=== PATIENT | female | born 1985 | race American Indian/Alaskan Native ===

== ENCOUNTER 2018-04-29 11:37 | Emergency (ER) | payer OTHER, MEDICAID ==
[2018-04-29 11:47] VITALS: BP 133/78
--- NOTE | 2018-04-29 12:24 | Emergency Department Report ---
ED Female HPI - General Chief complaint: Vaginal Bleeding Stated complaint: AND BLEDDING Time Seen by Provider: 04/29/18 12:21 Source: patient Mode of arrival: Ambulatory Limitations: No Limitations - History of Present Illness Initial comments: Unknown last normal menstrual period had a positive test at the [facility], no care, spotting times one day not soaking pads but did have one change of pads, she's been not been lightheaded or dizzy is here for evaluation of vaginal bleeding in , has had no care, no ultrasound does not know her blood type, and she is A0 Complaint: vaginal bleeding -: Gradual, hour(s) Severity scale (0 -10): 0 Quality: cramping Associated Symptoms: denies other symptoms. denies: nausea/vomiting, fever/ chills, headaches, loss of appetite, dysuria, hematuria, rash, seizure, shortness of breath, syncope, weakness - Related Data Allergies Allergy/AdvReac Type Severity Reaction Status Date / Time No Known Allergies Allergy Unverified 04/29/18 11:44 ED Review of Systems ROS: Stated complaint: AND BLEDDING Other details as noted in HPI Comment: All other systems reviewed and negative Constitutional: denies: diaphoresis, fever, malaise Eyes: denies: eye discharge, vision change ENT: denies: dental pain, hearing loss, epistaxis Respiratory: denies: shortness of breath, SOB with exertion, SOB at rest, stridor Cardiovascular: denies: chest pain, palpitations, dyspnea on exertion Gastrointestinal: denies: nausea, vomiting, diarrhea, constipation, hematemesis , melena, hematochezia Neurological: denies: headache, weakness, numbness, paresthesias ED Past Medical Hx - Past Medical History Previous Medical History?: No - Surgical History Past Surgical History?: No - Social History Smoking Status: Never Smoker Substance Use Type: None ED Physical Exam - General Limitations: No Limitations General appearance: alert, in no apparent distress - Head Head exam: Present: atraumatic, normocephalic - Eye Eye exam: Present: normal appearance, PERRL, EOMI - ENT ENT exam: Present: normal exam - Neck Neck exam: Present: normal inspection. Absent: tenderness, meningismus - Respiratory Respiratory exam: Present: normal lung sounds bilaterally. Absent: respiratory distress, wheezes, rales, rhonchi, stridor - Cardiovascular Cardiovascular Exam: Present: regular rate, normal rhythm - GI/Abdominal GI/Abdominal exam: Present: soft. Absent: distended, tenderness, guarding, rebound, rigid, mass, pulsatile mass - External exam: Present: normal external exam Speculum exam: Present: other (deferred at patient request) - Extremities Exam Extremities exam: Present: normal inspection, normal capillary refill ED Course Vital Signs 04/29/18 11:44 Temperature 98.6 F Pulse Rate 83 Respiratory 16 Rate Blood Pressure 133/78 O2 Sat by Pulse 100 Oximetry ED Medical Decision Making - Lab Data Result diagrams: 04/29/18 12:38 - Radiology Data Radiology results: report reviewed - Medical Decision Making Ultrasound shows IUP ,patient is a no acute abd at this time vital signs are stable normal H&H Rh+ stable for outpatient follow-up Critical care attestation.: If time is entered above; I have spent that time in minutes in the direct care of this critically ill patient, excluding procedure time. ED Disposition Clinical Impression: Threatened Disposition: DC-01 TO HOME OR SELFCARE Is pt being admited?: No Condition: Stable Instructions: Threatened Miscarriage (ED) Additional Instructions: Return immediately if new or alarming symptoms such as worse bleeding pain or other problems soaking a pad an hour for greater than 6 hours lightheadedness or other problems see the doctor listed Referrals: PRIMARY CARE, [Primary Care Provider] - 3-5 Days Time of Disposition: 15:50
[2018-04-29 12:50] LABS: Basophils % (Auto) 0.6 % (0.0-1.8); Eosinophils # (Auto) 0.3 K/mm3 (0.0-0.4); Eosinophils % (Auto) 3.6 % (0.0-4.3); Hematocrit 38.2 % (30.3-42.9); Hemoglobin 12.4 gm/dl (10.1-14.3); Lymphocytes # (Auto) 2.8 K/mm3 (1.2-5.4); Lymphocytes % (Auto) 39.3 % (13.4-35.0); Mean Corpuscular HGB Conc 32 % (30-34); Mean Corpuscular Hemoglobin 26 pg (28-32); Mean Corpuscular Volume 81 fl (79-97); Monocytes # (Auto) 0.4 K/mm3 (0.0-0.8); Monocytes % (Auto) 6.2 % (0.0-7.3); Platelet Count 258 K/mm3 (140-440); Red Blood Count 4.74 M/mm3 (3.65-5.03); Red Cell Distribution Width 14.8 % (13.2-15.2)
--- NOTE | 2018-04-29 15:22 | Ultrasound Report ---
FINAL REPORT EXAM: US OB < = 14 WEEKS FETUS HISTORY: 11 weeks , vaginal bleeding, cramping TECHNIQUE: Transabdominal and transvaginal OB ultrasound. PRIORS: None currently available. FINDINGS: Single intrauterine dates 11.5 weeks by crown rump length. ANABELLE equals November 13, 2018.. [place]-rump length measures 49.4 mm. heart rate: 162 BPM. Uterus: 11.2 x 7.3 x 8.8 cm. Gestational sac, yolk sac, and pole identified. Subchorionic bleed measures 7.4 x 1.0 x 5.8 cm. Cervix: Right ovary: 2.9 x 1.9 x 2.3 cm. 1.2 cm complex cystic lesion in the left ovary may represent an involuting corpus luteal cyst. Left Ovary: 3.2 x 1.8 x 3.1 cm. Within normal limits. Adnexal: Unremarkable. No free fluid. IMPRESSION: Single live intrauterine . Complex cystic lesion in the right ovary. Suspect involuting corpus luteal cyst. Subchorionic bleed. Juvencio level II non-urgent reporting initiated.
== END 2018-04-29 16:07 | disposition home or self-care (01) ==
LOC: ED 11:37
DX: O20.0 Threatened abortion (principal); Z3A.11 11 weeks gestation of pregnancy
CPT/HCPCS: 36415; 76801; 76817; 84702; 85025; 86850; 86900; 86901; 99284

== ENCOUNTER 2018-11-01 14:17 | Inpatient (IN) | payer OTHER, MEDICAID ==
[2018-11-01] MEDS ORDERED: XYLOCAINE 2% INFILTRATI ONE (19:20)
[2018-11-01] MEDS ORDERED: MINERAL OIL PO PRN (19:20)
[2018-11-01] MEDS ORDERED: BRETHINE IVP PRN (19:20)
[2018-11-01] MEDS ORDERED: STADOL IV PRN (19:20)
[2018-11-01] MEDS ORDERED: PHENERGAN PO PRN ×2 (19:20→21:42)
[2018-11-01] MEDS ORDERED: BRETHINE SUB-Q PRN (19:20)
--- NOTE | 2018-11-01 19:20 | History and Physical Report ---
History of Present Illness Date of examination: 11/01/18 History of present illness: Patient presented to labor and delivery with complaints of regular contractions. After walking patient had change in cervix from 4 cm to 8 cm. Patient admitted for active labor. Her course complicated by gestational diabetes diet- controlled. Menstrual History Regularity: regular Duration: 5 LMP: 02/06/2018 LMP reliability: definite LMP character: normal EDC Calculations LMP: 11/13/2018 EDC Confirmation: 11/13/2018 Past History : 2 Term Births: 1 Premature Births: 0 Living Children: 1 Para: 1 Mult. Births: 0 Prev : 0 Prev. attempt? 0 Aborta: 0 Elect. Ab: 0 Spont. Ab: 0 Ectopics: 0 # 1 Delivery date: 10/28/2016 Weeks Gestation: 41 labor: no Delivery type: Hours of labor: >30 Anesthesia type: local Delivery location: [facility] [place], [place] Infant Sex: Male weight: ? Name: Tatiana Comments: Induction Past Medical History: Diabetes Presently on no medications Past Surgical History: Family History Summary: Other family member - Has No Family History of Ovarvian Cancer - Entered On: 05/01/2018 Other family member - Has No Family History of Colon Cancer - Entered On: 05/01/2018 Other family member - Has No Family History of Breast Cancer - Entered On: 05/01/2018 Other family member - Has Family History of Hypertension - Entered On: 05/01/2018 Other family member - Has Family History of Hyperlipidemia - Entered On: 05/01/2018 Social History: Marital Status: engaged Children: 1 Occupation: [employer] Patient is single Risk Factors: Smoked Tobacco Use: Never smoker Drug use: no HIV high-risk behavior: low risk Alcohol use: yes Drinks per day: social Dietary Counseling: pn yes Past Medical History Diabetes: yes Surgery (Non-yard rigger): Negative Past Surgical History Abnormal PAP: negative Uterine Anomaly: negative Social Hx: Marital Status: engaged Children: 1 Occupation: [employer] Patient is single Infection History Hx of STD: none HIV Risk Eval: low risk Hepatitis B Risk Eval: low risk Personal hx. of genital herpes: no Genetic History Congenital Heart Defect: Mom: no Dad: no Adia Disease: Mom: no Dad: no Thalassemia Mom: no Dad: no Neural Tube Defect Mom: no Dad: no Down's Syndrome Mom: no Dad: no He-Sachs Mom: no Dad: no Sickle Cell Disease/Trait Mom: no Dad: no Hemophilia Mom: no Dad: no Muscular Dystrophy Mom: no Dad: no Cystic Fibrosis Mom: no Dad: no Jackson Chorea Mom: no Dad: no Mental Retardation Mom: no Dad: no Fragile X Mom: no Dad: no Other Genetic/Chromosomal Disorder Mom: no Dad: no Child w/other defect Mom: no Dad: no Current Allergies (reviewed today): No known allergies Past History Past Medical History: other (See HPI) Past Surgical History: other (See HPI) SPOT WELDER History: other (See HPI) Family/Genetic History: other (See HPI) Social history: other (See HPI) - Obstetrical History Expected Date of Delivery: 11/13/18 Actual Gestation: 38 Week(s) 3 Day(s) : 2 Para: 1 Hx # Term Pregnancies: 1 Number of Pregnancies: 0 Spontaneous Abortions: 0 Induced : 0 Number of Living Children: 1 Medications and Allergies Allergies Allergy/AdvReac Type Severity Reaction Status Date / Time No Known Allergies Allergy Verified 11/01/18 14:43 Home Medications Medication Instructions Recorded Confirmed Last Taken Type No Known Home Medications [No 11/01/18 11/01/18 Unknown History Reported Home Medications] - Vital Signs Vital signs: Vital Signs Temp Pulse Resp BP 98.9 F 94 H 20 118/81 11/01/18 14:44 11/01/18 14:44 11/01/18 14:44 11/01/18 14:44 Temp Pulse Resp BP Pulse Ox 98.9 F 93 H 20 129/66 11/01/18 14:44 11/01/18 15:45 11/01/18 14:44 11/01/18 15:45 - Physical Exam Breasts: Positive: deferred Cardiovascular: Regular rate Vagina: Positive: normal moisture Uterus: Positive: enlarged - Obstetrical FHR: category 1 Uterine Contraction Pattern: Regular Uterine Contraction Intensity: Strong/Firm Results Result Diagrams: 11/01/18 19:00 All other labs normal. Assessment and Plan - Patient Problems (1) Active labor at term Current Visit: Yes Status: Acute Plan to address problem: Admit to labor and delivery please see orders (2) Gestational diabetes Current Visit: Yes Status: Acute Qualifiers: Gestational diabetes mellitus control: diet-controlled
[2018-11-01] MEDS ORDERED: PITOCin/NS 20 UNIT/1000ML DRIP 20,000 MILLIUNITS/1,000 ML BAG IV ONE (19:23)
[2018-11-01 19:34] LABS: Hematocrit 42.5 % (30.3-42.9); Hemoglobin 13.7 gm/dl (10.1-14.3); Mean Corpuscular HGB Conc 32 % (30-34); Mean Corpuscular Volume 81 fl (79-97); Platelet Count 248 K/mm3 (140-440); Red Blood Count 5.23 M/mm3 (3.65-5.03)
[2018-11-01] MEDS ORDERED: LACTATED RINGERS 1,000 ML IV SCH (20:00)
[2018-11-01] MEDS ORDERED: PITOCin/NS 20 UNIT/1000ML DRIP 20 UNITS/1,000 ML BAG IV SCH (20:00)
--- NOTE | 2018-11-01 20:19 | Procedure Note ---
OB Delivery Note - Delivery Date of Delivery: 11/01/18 Surgeon: YIN GONZALEZ Estimated blood loss: 300cc - Vaginal Delivery presentation: vertex Delivery position: OA Delivery induction: none Delivery monitor: external FHT, external uterine Route of delivery: Delivery placenta: spontaneous Episiotomy: none Delivery laceration: none Anesthesia: none - A at 1 minute: 7 at 5 minutes: 9 Gender: Male
[2018-11-01] MEDS ORDERED: TYLENOL PO PRN (21:42)
[2018-11-01] MEDS ORDERED: DULCOLAX PR PRN (21:42)
[2018-11-01] MEDS ORDERED: BENADRYL PO PRN (21:42)
[2018-11-01] MEDS ORDERED: MILK OF MAGNESIA PO PRN (21:42)
[2018-11-01] MEDS ORDERED: SODIUM CHLORIDE FLUSH SYRINGE 10 ML IV NR (21:42)
[2018-11-01] MEDS ORDERED: TUCKS PAD TP PRN (21:42)
[2018-11-01] MEDS ORDERED: LANSINOH TP PRN (21:42)
[2018-11-01] MEDS: IBUPROFEN PO SCH (23:12)
[2018-11-01] MEDS: COLACE PO SCH (23:13)
[2018-11-02] MEDS: IBUPROFEN PO SCH ×4 (04:59→23:27)
[2018-11-02 08:15] LABS: Hematocrit 41.7 % (30.3-42.9); Hemoglobin 13.4 gm/dl (10.1-14.3)
[2018-11-02] MEDS ORDERED: PRENATAL VITAMIN PO SCH (10:00)
[2018-11-02] MEDS: NORCO 5/325 PO PRN ×2 (10:53→16:33)
--- NOTE | 2018-11-02 15:06 | Progress Note ---
Assessment and Plan 33 y.o. s/p PPD1. Reports feeling well. No complaints. Reports bleeding is light and denies any large clots. Reports pain is well controlled with ibuprofen. VSSAF. Baby boy is doing well. Discussed circumcision procedure in office in 1 week, will need to call office to schedule appointment. Patient does not want any control at this time. Subjective - Subjective Date of service: 11/02/18 (1100) Patient reports: appetite normal, voiding normally, pain well controlled, ambulating normally [place]: doing well, nursing well, bottle feeding Objective - Vital Signs Latest vital signs: Vital Signs Temp Pulse Resp BP BP Pulse Ox 11/02/18 10:53 20 11/02/18 07:35 98.5 F 74 17 110/53 11/02/18 05:00 98.8 F 75 18 103/56 95 11/02/18 04:59 18 11/02/18 01:18 98.7 F 90 18 101/52 97 11/01/18 23:12 18 11/01/18 21:33 98.0 F 92 H 18 106/60 100 11/01/18 20:44 93 H 130/57 11/01/18 20:29 100 H 123/61 11/01/18 20:14 93 H 119/60 11/01/18 20:00 100 H 139/62 11/01/18 19:15 162 H 121/83 11/01/18 15:45 93 H 129/66 Intake and Output 11/01/18 11/02/18 11/02/18 23:59 07:59 15:59 Intake Total 480 Output Total 900 800 Balance -900 -320 Intake: Oral 120 Intake, Free Water 360 Output: Urine 900 800 Void 900 800 Other: Total, Intake Amount 120 Total, Output Amount 900 800 # Voids Void 1 Weight 90.718 kg Estimated Blood Loss 300 - Exam Breasts: Present: normal Cardiovascular: Present: Regular rate Lungs: Present: Clear to auscultation Abdomen: Present: normal appearance, soft, normal bowel sounds Vulva: both: normal Uterus: Present: normal, firm Extremities: Present: normal - Labs Labs: Abnormal lab results 11/01/18 Range/Units 19:00 RBC 5.23 H (3.65-5.03) M/mm3 MCH 26 L (28-32) pg
[2018-11-02] MEDS: COLACE PO SCH (23:27)
[2018-11-03] MEDS: IBUPROFEN PO SCH (05:22)
--- NOTE | 2018-11-03 12:24 | Discharge Summary ---
Providers - Providers Date of Admission: 11/01/18 19:13 Date of discharge: 11/03/18 Attending physician: YIN GONZALEZ 11/01/18 21:42 Consult to Loss Prevention Agent [CONS] Routine Reason For Exam: assistance with , SNS Primary care physician: YIN GONZALEZ Hospitalization Reason for admission: active labor Delivery: Episiotomy: none Laceration: none Other procedures: none complications: none Discharge diagnosis: IUP at term delivered baby: male Hospital course: Patient was admitted underwent a normal spontaneous vaginal delivery. Her course was benign. She was afebrile throughout her stay. Her day 1 hematocrit was 41.7% patient is planning to breast-feed and does not desire any control at this time. Patient desires of discharge today Condition at discharge: Good Disposition: DC-01 TO HOME OR SELFCARE - Discharge Diagnoses (1) Active labor at term Status: Acute (2) Gestational diabetes Status: Acute Qualifiers: Gestational diabetes mellitus control: diet-controlled Plan - Discharge Medications Prescriptions: Lidocain2.5%/Prilocai2.5% [Emla] 5 gm TP ONCE #1 tube Ibuprofen [Motrin 800 MG tab] 800 mg PO Q6H PRN #30 tablet PRN Reason: Pain - Provider Discharge Summary Activity: routine, no sex for 6 weeks, no strenuous exercise Diet: routine Instructions: routine Additional instructions: [] Smoking cessation referral if applicable(refer to patient education folder for contact #) [] Refer to [facility]'s [facility] Booklet Call your doctor immediately for: * Fever > 100.5 * Heavy vaginal bleeding ( >1 pad per hour) * Severe persistent headache * Shortness of breath * Reddened, hot, painful area to leg or breast * Drainage or odor from incision. *Patient to follow up in office for 4 weeks for visit discuss possible contraceptive options. Patient's call office to schedule her son's circumcision. - Follow up plan Follow up: YIN GONZALEZ MD [Primary Care Provider] - 7 Days
[2018-11-03 17:49] VITALS: BP 106/65
== END 2018-11-03 20:35 | disposition home or self-care (01) | DRG 807 ==
LOC: TRG 14:17 → LD 19:13 → OB 21:19
PROVIDERS: ADMIT Obstetrics & Gynecology; ATTEND Obstetrics & Gynecology
PROC: 10E0XZZ Delivery of Products of Conception, External Approach (ICD-10-PCS; principal; 2018-11-01)
DX: O24.420 Gestational diabetes mellitus in childbirth, diet controlled (principal); Z37.0 Single live birth; Z3A.38 38 weeks gestation of pregnancy
CPT/HCPCS: 36415; 82962; 85014; 85018; 85027; 86592; 86850; 86900; 86901; G0378; J2590; J7120

== ENCOUNTER 2021-08-06 08:00 | Inpatient (IN) | payer OTHER ==
[2021-08-06] MEDS ORDERED: LOPERAMIDE 2 MG CAP PO PRN (08:16)
[2021-08-06] MEDS ORDERED: AMPICILLIN/NS 2 GM/100 ML 2 GM/100 ML BAG IV ONE (08:16)
[2021-08-06] MEDS ORDERED: METHYLERGONOVINE MALEATE 0.2 MG/ML VIAL IM PRN (08:16)
[2021-08-06] MEDS ORDERED: CARBOPROST TROMETHAMINE 250 MCG/1 ML INJ IM PRN (08:16)
[2021-08-06] MEDS ORDERED: LIDOCAINE (2%) 20 MG/1 ML VIAL 20 ML MDV INFILTRATI NR (08:16)
--- NOTE | 2021-08-06 08:29 | History and Physical Report ---
History of Present Illness Date of examination: 08/06/21 (Active labor) Date of admission: 08/06/21 08:25 Chief complaint: Contractions that are more painful. History of present illness: Pt is a @ 39.3 wks who presented to triage with c/o more painful contracti ons. Contractions started during the night. Per water resources program director, she is 8cm. EDC Confirmation: 08/10/2021 Gestational Age: 39.3 weeks on admission Past History : 3 Term Births: 2 Premature Births: 0 Living Children: 2 Para: 2 Mult. Births: 0 Prev : 0 Prev. attempt? 0 Aborta: 0 Elect. Ab: 0 Spont. Ab: 0 Ectopics: 0 # 1 Delivery date: 10/28/2016 Weeks Gestation: 41 labor: no Delivery type: Hours of labor: >30 Anesthesia type: local Delivery location: [facility] – [place] Infant Sex: Male weight: ? Name: Tatiana Comments: Induction # 2 Delivery date: 11/01/2018 Weeks Gestation: 38 Delivery type: Vaginal Hours of labor: 8 Anesthesia type: none Delivery location: [facility] [place] Infant Sex: male weight: 6.19 Name: Ivonne Comments: gestational diabetes Past Medical History: Diabetes Presently on no medications (pt denies hx of pre-existing DM, GDM dx last ) Past Surgical History: Reviewed history from 05/01/2018 and no changes required: Negative Past Surgical History Risk Factors: Smoked Tobacco Use: Never smoker Smokeless Tobacco Use: Never Drug use: no HIV high-risk behavior: no Alcohol use: no Exercise: no Seatbelt use: 100 % Past Medical History Abnormal PAP: negative Uterine Anomaly: negative Social Hx: Marital Status: engaged Children: 2 Occupation: [employer] Patient is single Smoking History: Patient has never smoked. Infection History Hx of STD: none HIV Risk Eval: no Hepatitis B Risk Eval: low risk Personal hx. of genital herpes: no Partner hx. of genital herpes: no Rash, Viral, or Febrile illness since last LMP? no Genetic History Congenital Heart Defect: Mom: no Dad: no Adia Disease: Mom: no Dad: no Thalassemia Mom: no Dad: no Neural Tube Defect Mom: no Dad: no Down's Syndrome Mom: no Dad: no He-Sachs Mom: no Dad: no Sickle Cell Disease/Trait Mom: no Dad: no Hemophilia Mom: no Dad: no Muscular Dystrophy Mom: no Dad: no Cystic Fibrosis Mom: no Dad: no Josseline Chorea Mom: no Dad: no Mental Retardation Mom: no Dad: no Fragile X Mom: no Dad: no Other Genetic/Chromosomal Disorder Mom: no Dad: no Child w/other defect Mom: no Dad: no Enviromental Exposures Xray Exposure: no Medication, drug, or alcohol use since LMP: no Chemical/Other Exposure: no Exposure to Cat Liter: no Hx of Parvovirus (Fifth Disease): no Occupational Exposure to Children: none Current Allergies (reviewed today): No known allergies Past History Past Medical History: diabetes (Questionable history of diabetes. GDM last . ) Past Surgical History: no surgical history Family/Genetic History: none Social history: no significant social history, - Obstetrical History Expected Date of Delivery: 08/10/21 Actual Gestation: 39 Week(s) 3 Day(s) : 3 Para: 2 Hx # Term Pregnancies: 2 Number of Pregnancies: 0 Spontaneous Abortions: 0 Induced : 0 Number of Living Children: 2 Medications and Allergies Allergies Allergy/AdvReac Type Severity Reaction Status Date / Time No Known Allergies Allergy Verified 11/01/18 14:43 Home Medications Medication Instructions Recorded Confirmed Last Taken Type Ibuprofen [Motrin] 800 mg PO Q8HR PRN #30 tablet 08/06/21 Unknown Rx Lidocain2.5%/Prilocai2.5% [Emla] 1 applic TP ONCE #1 tube 08/06/21 Unknown Rx Active Meds: Active Medications Acetaminophen (Acetaminophen 325 Mg Tab) 650 mg PO Q4H PRN PRN Reason: Pain, Mild (1-3) Carboprost Tromethamine (Carboprost Tromethamine 250 Mcg/1 Ml Inj) 250 mcg IM ONCE PRN PRN Reason: Uterine Bleeding Ephedrine Sulfate (Ephedrine Sulfate 50 Mg/1 Ml Inj) 10 mg IV Q2M PRN PRN Reason: Hypotension Fentanyl (Fentanyl 100 Mcg/2 Ml Inj) 100 mcg IV Q2H PRN PRN Reason: Pain,Severe (7-10) LABOR PAIN Oxytocin/Sodium Chloride (Pitocin/Ns 30 Unit/500ml) 30 units in 500 mls @ 2 mls/hr IV TITR ABA; Protocol Lactated Ringer's (Lactated Ringers) 1,000 mls @ 125 mls/hr IV DIRECT ABA Oxytocin/Sodium Chloride (Pitocin/Ns 30 Unit/500ml) 30 units in 500 mls @ 40 mls/hr IV TITR ABA; Protocol Ampicillin Sodium (Ampicillin/Ns 2 Gm/100 Ml) 2 gm in 100 mls @ 100 mls/hr IV ONCE ONE; Protocol Stop: 08/06/21 09:15 Ampicillin Sodium (Ampicillin/Ns 1 Gm/50 Ml) 1 gm in 50 mls @ 100 mls/hr IV Q4H ABA; Protocol Lidocaine (Lidocaine (2%) 20 Mg/1 Ml Vial 20 Ml Mdv) 20 ml INFILTRATI ONCE ONE Stop: 08/06/21 08:17 Loperamide HCl (Loperamide 2 Mg Cap) 2 mg PO ONCE PRN PRN Reason: give with Hemabate Methylergonovine Maleate (Methylergonovine Maleate 0.2 Mg/Ml Vial) 0.2 mg IM ONCE PRN PRN Reason: Uterine Bleeding Mineral Oil (Mineral Oil 30 Ml Oral Liqd) 30 ml PO QHS PRN PRN Reason: Constipation Misoprostol (Misoprostol 200 Mcg Tab) 800 mcg [place] ONCE PRN PRN Reason: Uterine Bleeding Nalbuphine HCl (Nalbuphine 10 Mg/1 Ml Inj) 10 mg IV Q2H PRN PRN Reason: Pain, Moderate (4-6) Ondansetron HCl (Ondansetron 4 Mg/2 Ml Inj) 4 mg IV Q8H PRN PRN Reason: Nausea And Vomiting Oxytocin (Oxytocin 10 Unit/1 Ml Inj) 10 unit IM ONCE PRN PRN Reason: Uterine Bleeding Promethazine HCl (Promethazine 25 Mg Tab) 25 mg PO Q6H PRN PRN Reason: Nausea And Vomiting Terbutaline Sulfate (Terbutaline 1 Mg/1 Ml Inj) 0.25 mg SUB-Q ONCE PRN PRN Reason: Hyperstimulation/Hypertonicity Review of Systems All systems: negative - Vital Signs Vital signs: Vital Signs Pulse Pulse Ox 100 H 100 08/06/21 08:14 08/06/21 08:14 Temp Pulse Resp BP Pulse Ox 92 H 99 08/06/21 08:19 08/06/21 08:19 - Physical Exam Breasts: Positive: deferred Cardiovascular: Regular rate Lungs: Positive: Normal air movement Abdomen: Positive: normal appearance, soft Genitourinary (Female): Positive: normal external genitalia, normal perenium Vulva: both: normal Vagina: Positive: normal moisture Uterus: Positive: normal size (For 39 wks gestation. ) Extremities: Positive: normal - Obstetrical FHR: category 1 Uterine Contraction Monitor Mode: External Cervical Dilatation: 8 (Per water resources program director.) Cervical Effacement Percentage: 80 station: 0 Uterine Contraction Pattern: Regular Uterine Tone Measurement Phase: Resting Uterine Contraction Intensity: Moderate Results Result Diagrams: 08/06/21 19:29 All other labs normal. GBS POSITIVE O Positive, antibody negative Hep B negative RPR Non reactive Hep C non reactive HIV negative Rubella Immune Elevated 1 hr gtt @ 156, but 3 hr gtt WNL Assessment and Plan A: 36 y.o. @ 39.3 wks, active labor. Cervical exam /0. GBS positive. - Patient Problems (1) GBS (group B streptococcus) infection Current Visit: Yes Status: Acute Plan to address problem: Antibiotics ordered. (2) with 39 completed weeks gestation Current Visit: Yes Status: Acute Plan to address problem: Admit to labor and delivery. Initiate IV. Draw admission labs. Continuous EFM. Anticipate .
[2021-08-06] MEDS ORDERED: LACTATED RINGERS 1,000 ML ONE (08:30)
[2021-08-06] MEDS ORDERED: fentaNYL 100 MCG/2 ML INJ IV PRN (09:00)
[2021-08-06] MEDS ORDERED: miSOPROStol 200 MCG TAB PR PRN (09:00)
[2021-08-06] MEDS ORDERED: ACETAMINOPHEN 325 MG TAB PO PRN ×2 (09:00→10:23)
[2021-08-06] MEDS ORDERED: ONDANSETRON 4 MG/2 ML INJ IV PRN ×2 (09:00→11:00)
[2021-08-06] MEDS ORDERED: TERBUTALINE 1 MG/1 ML INJ SUB-Q PRN (09:00)
[2021-08-06] MEDS ORDERED: OXYTOCIN 10 UNIT/1 ML INJ IM PRN (09:00)
[2021-08-06] MEDS ORDERED: OXYTOCIN DRIP 30 UNITS/500 ML BAG IV SCH ×3 (09:00→11:00)
[2021-08-06] MEDS ORDERED: LACTATED RINGERS 1,000 ML IV SCH (09:00)
[2021-08-06] MEDS ORDERED: PROMETHAZINE 25 MG TAB PO PRN ×2 (09:00→11:00)
[2021-08-06] MEDS ORDERED: NalbUPHINE 10 MG/1 ML INJ IV PRN (09:00)
[2021-08-06] MEDS ORDERED: ePHEDrine SULFATE 50 MG/1 ML INJ IV PRN (09:00)
--- NOTE | 2021-08-06 09:04 | Progress Note ---
Assessment and Plan A: 36 y.o. @ 39.3 wks, active labor. GBS positive. Cervical exam 9/100/0. P: Continue with expectant management. Anticipate . Subjective - Subjective Date of service: 08/06/21 (Pt feeling vaginal pressure) Principal diagnosis: IUP @ 39.3 wks, active labor, GBS positive Patient reports: other (Feeling vaginal pressure) Objective - Vital Signs Vital Signs: Vital Signs - 12hr 08/06/21 08/06/21 08:14 08:19 Pulse Rate 100 H 92 H O2 Sat by Pulse 100 99 Oximetry - Exam Narrative Exam: Called by RN that patient was feeling vaginal pressure. Cervical exam 9/100/0. Pt would like pain medication. Declines epidural. Pain medication ordered and to be given. Will have ROBINSON team in room if patient delivers within the hour after pain medication administered. Breasts: deferred Cardiovascular: Regular rate Lungs: Normal air movement Abdomen: Present: normal appearance, soft Vulva: both: normal Uterus: Present: normal FHR: auscultation normal Uterine Contraction Monitor Mode: External Cervical Dilatation: 9 Cervical Effacement Percentage: 100 station: 0 Uterine Contraction Pattern: Regular Uterine Tone Measurement Phase: Resting Uterine Contraction Intensity: Moderate Extremities: normal Deep Tendon Reflex Grade: Normal +2
[2021-08-06 09:15] LABS: Hematocrit 39.9 % (30.3-42.9); Hemoglobin 13.7 gm/dl (10.1-14.3); Mean Corpuscular HGB Conc 34 % (30-34); Mean Corpuscular Volume 82 fl (79-97); Platelet Count 220 K/mm3 (140-440); Red Blood Count 4.87 M/mm3 (3.65-5.03); Red Cell Distribution Width 14.8 % (13.2-15.2)
[2021-08-06] MEDS ORDERED: FLU VACC QUAD 2021-22(6MOS UP)/PF 60 MCG/0.5 ML SYRINGE IM ONE (10:00)
--- NOTE | 2021-08-06 10:11 | Procedure Note ---
OB Delivery Note - Delivery Date of Delivery: 08/06/21 Web Feeder: OMARI DRUMMOND Estimated blood loss: 200cc - Vaginal Delivery presentation: vertex Delivery position: OA Intrapartum events: meconium, precipitous labor- <3hr, other(please specify) (GBS Positive, inadequate treatment. ) Delivery induction: none Delivery augmentation: rupture of membranes Delivery monitor: external FHT, external uterine Route of delivery: Delivery placenta: spontaneous Delivery cord: 3 umbilical vessels Episiotomy: none Delivery laceration: none Anesthesia: intravenous Delivery comments: AROM @ 0944 for thick meconium. of viable male . to mother's abdomen for skin to skin. Cord clamped. Cut by FOC. Infant handed to ROBINSON team for evaluation. Spontaneous delivery of placenta, intact, complete, 3 vessels noted. Perineum and vagina inspected, no lacerations noted. Fundus firm, minimal bleeding noted. Apgars 8,9. Infant weight 6-6. EBL 200ml, difficult to get QBL d/t amount of meconium in under buttocks drape. Sponges and instruments counted X 2 with RN and correct X2. Infant and mother left in stable condition in care of RN. - Infant A at 1 minute: 8 at 5 minutes: 9 Gender: Male (Weight 6-6)
[2021-08-06] MEDS ORDERED: miSOPROStol 100 MCG TAB PR PRN (10:23)
[2021-08-06] MEDS ORDERED: BENZOCAINE/MENTHOL 20/0.5% TOP SPRAY 56 GM TP PRN (11:00)
[2021-08-06] MEDS ORDERED: oxyCODONE /ACETAMINOPHEN 5-325MG TAB PO PRN (11:00)
[2021-08-06] MEDS ORDERED: MAGNESIUM HYDROXIDE (MOM) ORAL LIQD UDC PO PRN (11:00)
[2021-08-06] MEDS ORDERED: WITCH HAZEL/ GLYCERIN PAD TP PRN (11:00)
[2021-08-06] MEDS ORDERED: IBUPROFEN 600 MG TAB PO SCH (11:00)
[2021-08-06] MEDS ORDERED: LANOLIN/ZINC/DIMETHICONE (LANSINOH) 7 GM TP PRN ×2 (11:00)
[2021-08-06] MEDS ORDERED: PROMETHAZINE 25 MG RECT SUPP PR PRN (11:00)
[2021-08-06] MEDS ORDERED: diphenhydrAMINE 25 MG CAP PO PRN (11:00)
[2021-08-06] MEDS ORDERED: ACETAMINOPHEN 500 MG TAB PO PRN (11:30)
[2021-08-06] MEDS: IBUPROFEN 800 MG TAB PO SCH ×3 (11:56→23:10)
[2021-08-06] MEDS: DOCUSATE SODIUM 100 MG CAP PO SCH ×2 (12:37→21:11)
[2021-08-06] MEDS ORDERED: AMPICILLIN/NS 1 GM/50 ML 1 GM/50 ML BAG IV SCH (13:00)
[2021-08-06 19:53] LABS: Hematocrit 37.1 % (30.3-42.9); Hemoglobin 12.2 gm/dl (10.1-14.3)
[2021-08-06] MEDS ORDERED: MINERAL OIL 30 ML ORAL LIQD PO PRN (22:00)
[2021-08-07] MEDS: IBUPROFEN 800 MG TAB PO SCH ×4 (05:46→23:11)
[2021-08-07] MEDS ORDERED: TETANUS,DIPH,PERTUSS(ACELL) VACCINE 0.5 ML SYRINGE IM ONE (09:00)
[2021-08-07] MEDS: DOCUSATE SODIUM 100 MG CAP PO SCH ×2 (09:40→22:18)
[2021-08-07] MEDS ORDERED: PRENATAL VIT27-FE FUMARATE-FOLIC ACID VIT TAB PO SCH (10:00)
--- NOTE | 2021-08-07 10:15 | Discharge Summary ---
Providers - Providers Date of Admission: 08/06/21 08:25 Date of discharge: 08/07/21 Attending physician: SARA LAUREN MD Primary care physician: YIN GONZALEZ Hospitalization Reason for admission: Contractions Condition: Good Pertinent studies: H&H 12.2/37.1 Procedures: Hospital course: Uncomplicated course, fundus firm and lochia light. VSSAF Disposition: 01 HOME / SELF CARE / HOMELESS Final Discharge Diagnosis (Prints w/discharge instructions): Time spent for discharge: 15 - Discharge Diagnoses (1) Spontaneous vaginal delivery Status: Acute Core Measure Documentation - Palliative Care Palliative Care/ Comfort Measures: Not Applicable - Core Measures Any of the following diagnoses?: none Exam - Constitutional Vitals: Temp Pulse Resp BP Pulse Ox 97.7 F 77 24 105/52 98 08/07/21 07:43 08/07/21 07:43 08/07/21 07:43 08/07/21 07:43 08/07/21 07:47 General appearance: Present: no acute distress - EENT Eyes: Present: PERRL, EOM intact ENT: hearing intact, clear oral mucosa - Neck Neck: Present: normal ROM - Respiratory Respiratory effort: normal - Extremities Extremities: no ischemia - Abdominal General gastrointestinal: Present: soft, non-tender - Integumentary Integumentary: Present: clear, warm, dry Plan Activity: no restrictions Diet: regular Follow up with: YIN GONZALEZ MD [Primary Care Provider] - 7 Days (Congratulations! Rachel araiza call [phone] to schedule your son's circumcision for 1 week and your follow-up appointment for 4 weeks. Bring EMLA cream to your son's appointment and wait for further instructions. ) Prescriptions: Lidocain2.5%/Prilocai2.5% [Emla] 1 applic TP ONCE #1 tube Ibuprofen [Motrin] 800 mg PO Q8HR PRN #30 tablet PRN Reason: Pain, Moderate (4-6)
[2021-08-08] MEDS: IBUPROFEN 800 MG TAB PO SCH (06:11)
[2021-08-08 12:15] VITALS: BP 107/72
== END 2021-08-08 12:15 | disposition home or self-care (01) | DRG 807 ==
LOC: TRG 08:00 → APU 08:12 → TRG 08:24 → LD 08:25 → OB 12:33
PROVIDERS: ADMIT Student in an Organized Health Care Education/Training Program; ATTEND Student in an Organized Health Care Education/Training Program
PROC: 10E0XZZ Delivery of Products of Conception, External Approach (ICD-10-PCS; principal; 2021-08-06)
PROC: 3E0R3BZ Introduction of Anesthetic Agent into Spinal Canal, Percutaneous Approach (ICD-10-PCS; 2021-08-06)
PROC: 00HU33Z Insertion of Infusion Device into Spinal Canal, Percutaneous Approach (ICD-10-PCS; 2021-08-06)
DX: O77.0 Labor and delivery complicated by meconium in amniotic fluid (principal); Z37.0 Single live birth; O99.824 Streptococcus B carrier state complicating childbirth; Z3A.39 39 weeks gestation of pregnancy; Z20.822 Contact with and (suspected) exposure to COVID-19; O24.92 Unspecified diabetes mellitus in childbirth
CPT/HCPCS: 36415; 59025; 85014; 85018; 85027; 86592; 86850; 86900; 86901; G0378; J0290; J2590; J3010; J7120; U0003